=== PATIENT | female | born 1950 | race Two or more races ===

== ENCOUNTER 2023-04-12 14:53 | Emergency (ER) | payer MEDICARE, OTHER ==
[~2023-04-12] VITALS: Ht 165.1 cm; Wt 45.8 kg
--- NOTE | 2023-04-12 15:00 | NUR ---
RECEIVED PT 72 YRS MAXINE FROM [facility] FOR ABDOMINALE PAIN WITH N/V
--- NOTE | 2023-04-12 15:45 | NUR ---
to ct scan of abdomin
--- NOTE | 2023-04-12 15:55 | NUR ---
INSERTED ANGO CATHETER G 18 ON LT AC BLOOD DROW AND SENT TO LAB
[2023-04-12] MEDS ORDERED: ONDANSETRON HCL/PF 4 MG/2 ML VIAL ONE (15:58)
[2023-04-12] MEDS ORDERED: IV NS 0.9% 1,000 ML BAG IV ONE (16:00)
[2023-04-12] MEDS ORDERED: ONDANSETRON HCL/PF 4 MG/2 ML VIAL IVP ONE (16:00)
--- NOTE | 2023-04-12 16:20 | NUR ---
TO CT SCAN WITH CONTRAST
[2023-04-12 16:27] LABS: BASOPHILS % (AUTO) 0.3 % (0.0-2.0); HEMATOCRIT 47 % (33-45); HEMOGLOBIN 15.3 g/dL (11.5-14.8); LYMPHOCYTES # (AUTO) 0.8 K/uL (0.8-4.8); LYMPHOCYTES % (AUTO) 10.6 % (20.0-44.0); MEAN CORPUSCULAR HGB CONC 33 g/dl (31.0-36.0); MEAN CORPUSCULAR VOLUME 86 fL (82-100); MONOCYTES # (AUTO) 0.6 K/uL (0.1-1.30); MONOCYTES % (AUTO) 7.7 % (2.0-12.0); NEUTROPHILS # (AUTO) 6.3 K/uL (1.8-8.9); NEUTROPHILS % (AUTO) 81.4 % (43.0-81.0); PLATELET COUNT (AUTO) 222 K/uL (150-450); RED BLOOD CELL COUNT(AUTO) 5.39 MIL/uL (4.0-5.2); WHITE BLOOD COUNT (AUTO) 7.7 K/uL (4.3-11.0)
[2023-04-12 16:35] LABS: CALCIUM, SERUM 9.9 mg/dL (8.5-10.1); CARBON DIOXIDE 29 mmol/L (21-32); CHLORIDE 98 mmol/L (98-107); CREATININE 0.7 mg/dL (0.6-1.3); GLUCOSE 93 mg/dL (74-106); POTASSIUM 3.6 mmol/L (3.5-5.1); SODIUM SERUM 138 mmol/L (136-145); UREA NITROGEN, BLOOD 20 mg/dL (7-18)
[2023-04-12 16:40] LABS: ALANINE AMINOTRANSFERASE 18 U/L (12-78); ALKALINE PHOSPHATASE 67 U/L (46-116); ASPARTATE AMINOTRANSFERASE 15 U/L (15-37); BILIRUBIN,DIRECT 0.2 mg/dL (0.0-0.2); BILIRUBIN,TOTAL 0.8 mg/dL (0.2-1.0); LIPASE 71 U/L (73-393); TOTAL PROTEIN, SERUM 7.5 g/dL (6.4-8.2)
[2023-04-12] MEDS ORDERED: IOHEXOL-300 100 ML VIAL IV ONE (16:56)
[2023-04-12] MEDS ORDERED: IV NS 0.9% 250 ML IV ONE (16:56)
--- NOTE | 2023-04-12 18:00 | NUR ---
NO COMPLAIN AT THIS TIME
--- NOTE | 2023-04-12 19:00 | NUR ---
UA AND UC SENT TO LAB
--- NOTE | 2023-04-12 19:22 | NUR ---
CALLED [facility] FOR TRANSPORT BACK TO FACILITY : [facility]. ETA 45-60 MIN
--- NOTE | 2023-04-12 19:40 | NUR ---
REPORT GIVEN TO [facility]
[2023-04-12 19:46] LABS: BILIRUBIN,URINE NEGATIVE (NEGATIVE); COLOR,URINE YELLOW (YELLOW); LEUKOCYTE ESTERASE ,URINE TRACE (NEGATIVE); NITRITE, URINE NEGATIVE (NEGATIVE); PROTEIN,URINE NEGATIVE (NEGATIVE); UGLUCOSE NEGATIVE (NEGATIVE)
[2023-04-12 19:52] LABS: BACTERIA,URINE 1+ /HPF (None Seen); SQUAMOUS EPITHELIAL CELL,UR 0-2 /HPF (None Seen); URINE AMORPHOUS PHOSPHATES Few /HPF (None Seen)
[2023-04-12] MEDS ORDERED: ONDA4TAB5 PO (20:44)
--- NOTE | 2023-04-12 20:52 | NUR ---
[facility] TRANSPORTING PT BACK TO [facility] IN STABLE CONDITION.
[2023-04-12 20:54] VITALS: BP 153/70
== END 2023-04-12 21:32 | disposition home or self-care (01) ==
LOC: ER 15:11
DX: K59.00 Constipation, unspecified (principal); R11.2 Nausea with vomiting, unspecified; R07.89 Other chest pain; G89.29 Other chronic pain; M54.9 Dorsalgia, unspecified; Z88.2 Allergy status to sulfonamides
CPT/HCPCS: 99285; 71260; 96374; 71045; 96361; 93005; 74176; 85025; 80048; 87086; 83690; 80076; 81001; 36415; 84484; J2405; J7030; J7050; Q9967